=== PATIENT | female | born 1975 | race Caucasian/White ===

== ENCOUNTER → 2018-05-18 | Outpatient (CLI) | payer OTHER | END | disposition home or self-care (01) | LOC: CFH 10:24 | PROVIDERS: ATTEND Obstetrics & Gynecology | DX: Z12.31 Encounter for screening mammogram for malignant neoplasm of breast (principal) | CPT/HCPCS: 77067 ==

== ENCOUNTER → 2019-06-24 | Outpatient (CLI) | payer OTHER | END | disposition home or self-care (01) | LOC: PETCFH 08:15 | PROVIDERS: ATTEND Specialist | DX: C49.A0 Gastrointestinal stromal tumor, unspecified site (principal) | CPT/HCPCS: 78815; A9552 ==

== ENCOUNTER 2019-07-12 08:53 | Outpatient (CLI) | payer OTHER | END 2019-07-12 23:59 | disposition home or self-care (01) | LOC: CFH 08:53 → RAD 23:59 | PROVIDERS: ATTEND Specialist | DX: Z12.31 Encounter for screening mammogram for malignant neoplasm of breast (principal); N64.89 Other specified disorders of breast; C49.A0 Gastrointestinal stromal tumor, unspecified site; E04.1 Nontoxic single thyroid nodule | CPT/HCPCS: 10005; 76536; 76641; 77063; 77067; 88172; 88173 ==

== ENCOUNTER → 2020-05-16 | Outpatient (CLI) | payer OTHER | END | disposition home or self-care (01) | LOC: PETCFH 08:39 | PROVIDERS: ATTEND Specialist | DX: C49.A2 Gastrointestinal stromal tumor of stomach (principal); N28.1 Cyst of kidney, acquired; K57.30 Diverticulosis of large intestine without perforation or abscess without bleeding | CPT/HCPCS: 78815; A9552 ==

== ENCOUNTER 2020-09-07 11:12 | Outpatient (CLI) | payer OTHER | END 2020-09-07 23:59 | disposition home or self-care (01) | LOC: CFH 11:12 | PROVIDERS: ATTEND Obstetrics & Gynecology | DX: Z12.31 Encounter for screening mammogram for malignant neoplasm of breast (principal) | CPT/HCPCS: 77063; 77067 ==

== ENCOUNTER 2021-03-20 10:47 | Outpatient (CLI) | payer OTHER | END 2021-03-20 23:59 | disposition home or self-care (01) | LOC: CFH 10:47 | PROVIDERS: ATTEND Internal Medicine | DX: K59.00 Constipation, unspecified (principal); R68.81 Early satiety; K21.9 Gastro-esophageal reflux disease without esophagitis; R11.11 Vomiting without nausea; R13.10 Dysphagia, unspecified; Z85.09 Personal history of malignant neoplasm of other digestive organs | CPT/HCPCS: 74021 ==

== ENCOUNTER → 2021-03-21 | Outpatient (CLI) | payer OTHER | END | disposition home or self-care (01) | LOC: RAD 11:14 | PROVIDERS: ATTEND Internal Medicine | DX: S30.850A Superficial foreign body of lower back and pelvis, initial encounter (principal); R13.10 Dysphagia, unspecified; R11.11 Vomiting without nausea; K21.9 Gastro-esophageal reflux disease without esophagitis; R68.81 Early satiety; Z85.09 Personal history of malignant neoplasm of other digestive organs; X58.XXXA Exposure to other specified factors, initial encounter; Y93.89 Activity, other specified; Y92.89 Other specified places as the place of occurrence of the external cause; Y99.8 Other external cause status | CPT/HCPCS: 74021 ==